=== PATIENT | female | born 1955 | race Caucasian/White ===

== ENCOUNTER 2017-10-05 07:57 | Emergency (ER) | payer OTHER ==
[2017-10-05 08:29] VITALS: BP 118/63
--- NOTE | 2017-10-05 08:35 | UC ---
Respiratory Complaint HPI - HPI Summary HPI Summary: Pt presents with c/o cough, chest congestion, wheezing with recumbent position, nasal congestion and generalized malaise X 5 days. - History of Current Complaint Stated Complaint: COUGH WHEEZING CONGESTION Time Seen by Provider: 10/05/17 08:06 Hx Obtained From: Patient ?: No Onset/Duration: Gradual Onset, Lasting Days, Still Present Timing: Constant Severity Initially: Mild Severity Currently: Mild Character: Cough: Productive Aggravating Factors: Exertion, Deep Breaths, Recumbent Position Associated Signs And Symptoms: Positive: Wheezing, URI, Nasal Congestion - Risk Factors Pulmonary Embolism Risk Factors: Negative Cardiac Risk Factors: Hypertension Pseudomonas Risk Factors: Negative Tuberculosis Risk Factors: Negative - Allergies/Home Medications Allergies/Adverse Reactions: Allergies Allergy/AdvReac Type Severity Reaction Status Date / Time Penicillins Allergy Intermediate Rash Verified 10/05/17 08:11 enviromenta;l Allergy Unknown Uncoded 10/05/17 08:11 Reaction Details percocet and related AdvReac Nausea Uncoded 10/05/17 08:11 Home Medications: Home Medications Aspirin Low Dose CHEW TAB* [Aspirin Low Dose TAB*] 81 mg PO DAILY 10/05/17 [ History Confirmed 10/05/17] PMH/Surg Hx/FS Hx/Imm Hx Previously Healthy: Yes Cardiovascular History: Hypertension - Surgical History Surgical History: None Surgery Procedure, Year, and Place: 06/2013 cardiac ablation, another ablation 2013 , right knee replaced, TEMP. REVEAL IMPLANT..LEFT CHEST WALL 04/2013 - Family History Known Family History: Positive: Cardiac Disease - Social History Occupation: Retired Lives: With Family Alcohol Use: Occasionally Substance Use Type: None Smoking Status (MU): Former Smoker Have You Smoked in the Last Year: No - Immunization History Most Recent Influenza Vaccination: AUG 2017 Review of Systems Constitutional: Fatigue Skin: Negative Eyes: Negative ENT: Sinus Congestion Respiratory: Shortness Of Breath - with exertion, Cough Cardiovascular: Negative Gastrointestinal: Negative Genitourinary: Negative Motor: Negative Neurovascular: Negative Musculoskeletal: Negative Neurological: Negative Psychological: Negative Is Patient Immunocompromised?: No All Other Systems Reviewed And Are Negative: Yes Physical Exam Triage Information Reviewed: Yes Appearance: Well-Appearing Vital Signs: Initial Vital Signs Temp 98.4 F 10/05/17 08:14 Resp 18 10/05/17 08:14 BP 118/63 10/05/17 08:14 Pulse Ox 97 10/05/17 08:14 Vital Signs Reviewed: Yes Eye Exam: Normal ENT Exam: Other ENT: Positive: Nasal congestion Dental Exam: Normal Neck exam: Normal Respiratory: Positive: No respiratory distress, Wheezing - fine with inspriration and expiration Cardiovascular Exam: Normal Musculoskeletal Exam: Normal Neurological Exam: Normal Psychological Exam: Normal Skin Exam: Normal UC Diagnostic Evaluation - Laboratory O2 Sat by Pulse Oximetry: 97 Respiratory Course/Dx - Differential Dx/Diagnosis Differential Diagnosis/HQI/PQRI: Bronchitis, Other - pneumonia Provider Diagnoses: bronchitis. pneumonia? Discharge - Discharge Plan Condition: Stable Disposition: HOME Prescriptions: Azithromycin TAB* [Zithromax TAB (Z-LEÓN) 250 mg #6 tabs] 2 tab PO .TODAY, THEN 1 DAILY #1 león Benzonatate CAP* [Tessalon 100 MG CAP*] 100 mg PO Q8H PRN #21 cap PRN Reason: Cough predniSONE TAB* [Deltasone TAB*] 30 mg PO DAILY #12 tab Patient Education Materials: Acute Bronchitis (ED), Bronchospasm (ED) Referrals: Katelyn Nye MD [Primary Care Provider] - If Needed
== END 2017-10-05 08:42 | disposition home or self-care (01) ==
LOC: UCCORT 07:57
DX: J40 Bronchitis, not specified as acute or chronic (principal); J18.9 Pneumonia, unspecified organism; I10 Essential (primary) hypertension; Z88.5 Allergy status to narcotic agent; Z88.0 Allergy status to penicillin; Z79.82 Long term (current) use of aspirin; Z96.651 Presence of right artificial knee joint; Z87.891 Personal history of nicotine dependence
CPT/HCPCS: 99212; G0463

== ENCOUNTER 2018-02-26 16:57 | Emergency (ER) | payer OTHER ==
[2018-02-26 18:08] VITALS: BP 141/74
[2018-02-26] MEDS ORDERED: Ketorolac INJ* 15 MG/ML 1 ML VIAL IM ONE (18:27)
[2018-02-26] MEDS ORDERED: Ketorolac INJ* 30 MG/ML 1 ML VIAL IM ONE (18:31)
[2018-02-26] MEDS ORDERED: Cyclobenzaprine TAB* 10 MG ONE (19:04)
[2018-02-26] MEDS ORDERED: Cyclobenzaprine TAB* 10 MG PO ONE (19:07)
--- NOTE | 2018-02-27 17:07 | UC ---
Back Pain HPI - HPI Summary HPI Summary: Patient is a 63-year-old female who presents to the for back pain 2 days. Patient states she was doing yard work yesterday and progressively developed left low back pain. Pain is worse with movement. She states she feels as though she is having intermittent spasming. She denies radicular pain and so legs. Denies numbness, tingling or weakness in legs. Denies bowel or bladder incontinence or retention. Pt. states she has had similar symptoms in the past and her symptoms improved with IM Toradol and a muscle relaxer. Symtpoms are mild in severity. - History of Current Complaint Chief Complaint: UCBackPain Stated Complaint: BACK PAIN Time Seen by Provider: 02/26/18 18:14 Hx Obtained From: Patient Pain Intensity: 5 Pain Scale Used: 0-10 Numeric - Allergies/Home Medications Allergies/Adverse Reactions: Allergies Allergy/AdvReac Type Severity Reaction Status Date / Time Penicillins Allergy Nausea Verified 02/26/18 18:10 enviromenta;l Allergy Unknown Uncoded 10/05/17 08:11 Reaction Details percocet and related AdvReac Nausea Uncoded 10/05/17 08:11 PMH/Surg Hx/FS Hx/Imm Hx Previously Healthy: Yes - Surgical History Surgical History: None Surgery Procedure, Year, and Place: 06/2013 cardiac ablation, another ablation 2013 , right knee replaced, TEMP. REVEAL IMPLANT..LEFT CHEST WALL 04/2013 - Family History Known Family History: Positive: Cardiac Disease - Social History Alcohol Use: Occasionally Substance Use Type: None Smoking Status (MU): Former Smoker Have You Smoked in the Last Year: No - Immunization History Most Recent Influenza Vaccination: AUG 2017 Review of Systems Constitutional: Negative ENT: Negative Respiratory: Negative Cardiovascular: Negative Gastrointestinal: Negative Genitourinary: Negative Motor: Negative Neurovascular: Negative Musculoskeletal: Other: - Left sided back pain Neurological: Negative Is Patient Immunocompromised?: No All Other Systems Reviewed And Are Negative: Yes Physical Exam Triage Information Reviewed: Yes Appearance: Well-Appearing - Patient sitting in chair in no acute distress. Pleasant. Vital Signs: Initial Vital Signs Temp 99.2 F 02/26/18 18:01 Pulse 57 02/26/18 18:01 Resp 16 02/26/18 18:01 BP 141/74 02/26/18 18:01 Pulse Ox 100 02/26/18 18:01 Vital Signs Reviewed: Yes Eyes: Positive: Conjunctiva Clear Neck: Positive: Supple Musculoskeletal Exam: Normal Musculoskeletal: Positive: Strength Intact, Other: - 5 out of 5 strength in bilateral lower extremities. Pin point pain on palpation to left lower paraspinal region. No CVA tenderness bilaterally. No midline tenderness. Neurological Exam: Normal Psychological Exam: Normal Back Pain Course/Dx - Course Course Of Treatment: Patient presenting for evaluation of back pain after doing yard work. She is no neurological deficits on exam or evidence of cauda equina syndrome. Pain is reproducible here patient states it feels like muscle spasms she's had before. She states she was given an injection of Toradol in the past which helped with her symptoms. 15 mg IM Toradol ordered. A few days of Flexeril prescribed. Advised patient to apply warm compresses to back. Gentle massage. Close follow-up with family doctor if symptoms persist and return to the urgent care or go to the ear symptoms change or worsen. - Differential Dx/Diagnosis Provider Diagnoses: 1. Muscle strian 2. Muscle spasm Discharge - Sign-Out/Discharge Documenting (check all that apply): Discharge/Admit/Transfer - Discharge Plan Condition: Good Disposition: HOME Prescriptions: Cyclobenzaprine TAB* [Flexeril 10 MG TAB*] 10 mg PO TID PRN #9 tab PRN Reason: Pain Patient Education Materials: Muscle Spasm (ED) Referrals: Katelyn Nye MD [Primary Care Provider] - Additional Instructions: Schedule a follow up appointment with your PCP Flexeril as directed for muscle spasm Apply warm compress Tylenol or Motrin for pain as directed Return to UC or go to ER if symptoms change or worsen - Billing Disposition and Condition Condition: GOOD Disposition: HOME
== END 2018-02-26 19:14 | disposition home or self-care (01) ==
LOC: UCCORT 16:57
DX: S39.012A Strain of muscle, fascia and tendon of lower back, initial encounter (principal); M62.830 Muscle spasm of back; X58.XXXA Exposure to other specified factors, initial encounter; Y93.9 Activity, unspecified; Y92.007 Garden or yard of unspecified non-institutional (private) residence as the place of occurrence of the external cause; Z88.5 Allergy status to narcotic agent; Z88.0 Allergy status to penicillin; Z87.891 Personal history of nicotine dependence
CPT/HCPCS: 96372; 99212; A9270-GY; G0463; J1885

== ENCOUNTER 2018-03-18 08:11 | Emergency (ER) | payer MEDICARE, OTHER ==
--- OUTSIDE RECORDS SUMMARY | 2018-03-18 08:25 | XMS REPORT ---
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 Katelyn Nye MD Primary Care Physician Unavailable Payers Type Date Identification Numbers Payment Provider Subscriber Commercial Effective: Policy Number: [id number] [employer] Maria D Jenkins 2017 PayID: [id number] [address] [place] [address] Commercial Expires: 2017 Policy Number: [facility] ABY Jenkins [id number] PayID: [id number] [address] [place] [address] Problems Date Description Provider Status Onset: 03/11/2017 Chronic allergic conjunctivitis Luisa Davis, Active RPA-C Onset: 02/04/2016 Acute atopic conjunctivitis Mani Galeano MD Active Onset: 02/04/2016 Allergic rhinitis Mani Galeano MD Active Onset: 02/04/2016 Allergic rhinitis due to pollen Mani Galeano MD Active Social History Type Date Description Comments Smoke-Free Home is smoke-free Pets 1 cat Cigarette Use Former Cigarette Smoker Smoking Patient is a former smoker Allergies, Adverse Reactions, Alerts Date Description Reaction Status Severity Comments 02/04/2016 Penicillin active Medications Medication Date Status Form Strength Qnty SIG Indications Ordering Provider Fluticasone 03/12 Active Suspension 50mcg/Act 1unit [place] 2 Christopher Propionate s puffs Enriqueta Galeano MD into each nostril once daily. Ketotifen 02/03 Active Solution 0.025% 5ml 1 drop J30.1 Christopher Fumarate apply to Enriqueta Galeano MD affected eye twice a day as needed Enalapril Active Tablets 20mg 1 tab Po Ring, Elyn Maleate / daily Pantoprazole Active Tablets DR 40mg takes Unknown Sodium twice a week KP Aspirin Active Tablets DR 81mg 1 tab PO Unknown daily Osphena Active Tablets 60mg twice a Unknown week Levocetirizine Active Tablets 5mg 90tab take one Christopher Dihydrochloride s tablet by Enriqueta Galeano MD mouth daily at bedtime. Mometasone 03/11 Hx Suspension 50mcg/Act 51gm [place] two J30.1 Christopher Furoate /2016 sprays in Enriqueta Galeano MD - each 03/11 nostril once daily. Fluticasone 02/20 Hx Suspension 50mcg/Act 1unit spray 2 Christopher Propionate s sprays in Enriqueta Galeano MD - each 09/02 nostril daily Nasacort Allergy 02/04 Hx Aerosol 55mcg/Act 1unit 2 sprays Christopher 24HR s in each Enriqueta Galeano MD - nostril 02/20 once a day Nasonex 02/03 Hx Suspension 50mcg/Act 17gm 2 J30.1 Christopher /2015 intranasa Enriqueta Galeano MD - l puffs 02/04 every /2015 Diazepam Hx Tablets 5mg Unknown - 03/10 Loratadine Hx Tablets 10mg take one Unknown tablet by - mouth 03/10 daily as needed Vital Signs Date Vital Result Comment 03/03/2018 BP Systolic 114 mmHg BP Diastolic 70 mmHg Height 65 inches 5'5" Weight 208.00 lb BMI (Body Mass Index) 34.6 kg/m2 Heart Rate 71 /min Respiratory Rate 17 /min Body Temperature 97.9 F O2 % BldC Oximetry 99 % 09/02/2017 BP Systolic 119 mmHg BP Diastolic 68 mmHg Height 65 inches 5'5" Weight 199.00 lb BMI (Body Mass Index) 33.1 kg/m2 Heart Rate 64 /min Respiratory Rate 18 /min O2 % BldC Oximetry 99 % 03/11/2017 BP Systolic 124 mmHg BP Diastolic 78 mmHg Height 65 inches 5'5" Weight 184.00 lb BMI (Body Mass Index) 30.6 kg/m2 Heart Rate 60 /min Respiratory Rate 16 /min Body Temperature 96.7 F O2 % BldC Oximetry 99 % 02/04/2016 BP Systolic 112 mmHg BP Diastolic 72 mmHg Height 65 inches 5'5" Weight 200.00 lb BMI (Body Mass Index) 33.3 kg/m2 Heart Rate 73 /min Respiratory Rate 16 /min Results Description No Information Procedures Description No Information Encounters Type Date Location Provider CPT E/M Dx Office Visit 03/03/2018 8:30a REBEKAH Horta [id number] J30.1 J30.89 H10.45 Office Visit 09/02/2017 9:00a ORALIA Collado 58833 J30.1 J30.89 H10.45 Office Visit 03/11/2017 9:00a ORALIA Collado 22083 J30.1 J30.89 H10.45 Office Visit 02/04/2016 10:30[place] [address] J30.1 J30.89 H10.13 Plan of Care Future Appointment(s):08/11/2018 9:30 am - ORALIA Hugo at [facility]/17/2018 - REBEKAH SteeleJ30.1 Allergic rhinitis due to pollenComments :Patient is doing well. Patient to continue Flonase as prescribed for prophylaxis of her nose and Xyzal for breakthrough nasal symptoms.Follow up:6 wvyzggI54.89 Other allergic gwmmxpqlT21.45 Other chronic allergic conjunctivitis
--- OUTSIDE RECORDS SUMMARY | 2018-03-18 08:25 | XMS REPORT ---
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 Katelyn Nye MD Primary Care Physician Unavailable Payers Type Date Identification Numbers Payment Provider Subscriber Commercial Effective: Policy Number: [id number] [employer] Maria D Jenkins 2017 PayID: [id number] [address] [place] [address] Commercial Expires: 2017 Policy Number: [facility] ABY Jenkins [id number] PayID: [id number] [address] [place] [address] Problems Date Description Provider Status Onset: 03/11/2017 [...] Provider Fluticasone 03/12 Active Suspension 50mcg/Act 1unit [place] 2 Christopher Propionate s puffs Enriqueta Galeano [...] a Unknown week Levocetirizine Active Tablets 5mg 30tab Take one Christopher Dihydrochloride s tablet by Enriqueta Galeano MD mouth daily at bedtime. Mometasone 03/11 Hx Suspension 50mcg/Act 51gm [place] two J30.1 Christopher Furoate /2016 sprays in [...] Location Provider CPT E/M Dx Office Visit 09/02/2017 9:00a ASHWIN ColladoC 91668 J30.1 J30.89 H10.45 Office Visit 03/11/2017 9:00a ASHWIN ColladoC 48030 J30.1 J30.89 H10.45 Office Visit 02/04/2016 10:30[place] [address] J30.1 J30.89 H10.13 Plan of Care 09/02/2017 - Luisa Davis, EUGENIE-CJ30.1 Allergic rhinitis due to pollenComments:Allergic rhinitis well controlled. Continue Fluticasone and Levocetirizine as prescribed.Follow up:6 months.J30.89 Other allergic rhinitisComments:Reviewed environmental controls for house dust and dust mite.Follow up:6 months.H10.45 Other chronic allergic conjunctivitisComments: Continue Ketotifen eye drops as needed for breakthrough eye allergy symptoms.Follow up:6 months.
[2018-03-18 08:34] VITALS: BP 116/67
[2018-03-18] MEDS ORDERED: cefTRIAXone VIAL(*) 1,000 MG VIAL IM ONE (09:09)
[2018-03-18] MEDS ORDERED: Lidocaine 1% INJ* 10 MG/ML 30 ML SDV INJ ONE (09:09)
[2018-03-18] MEDS ORDERED: Lidocaine 1%* 5 ML VIAL INJ ONE (09:11)
--- NOTE | 2018-03-18 10:07 | UC ---
Skin Complaint HPI - HPI Summary HPI Summary: 63 year old female with dog bite . Had 3 days ago No fever. redness right hand. some pain . Tdap 2010 and declined today. rabies shot 2016 per pt from family dogs. - History of Current Complaint Chief Complaint: UCBiteInjury Time Seen by Provider: 03/18/18 09:02 Stated Complaint: DOG BITE RT HAND Hx Obtained From: Patient Onset/Duration: Gradual Onset Timing: Constant Onset Severity: Moderate Current Severity: Moderate Pain Intensity: 6 Character: Swelling, Redness Aggravating Factor(s): Nothing Alleviating Factor(s): Nothing Associated Signs & Symptoms: Positive: Negative Related History: Trauma, Possible Reaction to: Animal - Allergy/Home Medications Allergies/Adverse Reactions: Allergies Allergy/AdvReac Type Severity Reaction Status Date / Time Penicillins Allergy Nausea Verified 02/26/18 18:10 enviromenta;l Allergy Unknown Uncoded 10/05/17 08:11 Reaction Details percocet and related AdvReac Nausea Uncoded 10/05/17 08:11 Review of Systems Skin: Other - redness hand from bite dog Is Patient Immunocompromised?: No All Other Systems Reviewed And Are Negative: Yes PMH/Surg Hx/FS Hx/Imm Hx Previously Healthy: Yes Cardiovascular History: Hypertension GI/ History: Gastroesophageal Reflux - Surgical History Surgical History: None Surgery Procedure, Year, and Place: 06/2013 cardiac ablation X3, right knee replaced, TEMP. REVEAL IMPLANT .LEFT CHEST WALL 04/2013 - Family History Known Family History: Positive: Cardiac Disease - Social History Lives: With Family Alcohol Use: Occasionally Substance Use Type: None Smoking Status (MU): Former Smoker Have You Smoked in the Last Year: No - Immunization History Most Recent Influenza Vaccination: AUG 2017 Physical Exam Triage Information Reviewed: Yes Appearance: Well-Appearing, No Pain Distress, Well-Nourished Vital Signs: Initial Vital Signs Temp 98.7 F 03/18/18 08:25 Pulse 69 03/18/18 08:25 Resp 17 03/18/18 08:25 BP 116/67 03/18/18 08:25 Pulse Ox 98 03/18/18 08:25 Vital Signs Reviewed: Yes Neck exam: Normal Neck: Positive: 1 Respiratory Exam: Normal Cardiovascular Exam: Normal Musculoskeletal Exam: Normal Neurological Exam: Normal Psychological Exam: Normal Skin: Positive: Other - right dorsal hand with erythema, redness, tender , warm , 2 small puncture wounds, right thumb with superficial laceration 1 cm and intact. goes to the wrist. no streaking. no discharge. does not extend beyond the wrist Course/Dx - Course Course Of Treatment: can not tolerate amox -- give doxy -- aware of SE and if Sx worsen then to go to ED - Differential Diagnoses - Skin Complaint Differential Diagnoses: Abscess, Cellulitis - Diagnoses Provider Diagnoses: dog bite right hand with secondary bacterial infection Discharge - Sign-Out/Discharge Documenting (check all that apply): Discharge/Admit/Transfer - Discharge Plan Condition: Good Disposition: HOME Prescriptions: Doxycycline Hyclate 100 mg PO BID 10 Days #20 tablet Patient Education Materials: Animal Bite (ED) Referrals: Katelyn Nye MD [Primary Care Provider] - 3 Days - Billing Disposition and Condition Condition: GOOD Disposition: HOME
== END 2018-03-18 10:08 | disposition home or self-care (01) ==
LOC: UCCORT 08:11
DX: S61.451A Open bite of right hand, initial encounter (principal); L08.9 Local infection of the skin and subcutaneous tissue, unspecified; B96.89 Other specified bacterial agents as the cause of diseases classified elsewhere; W54.0XXA Bitten by dog, initial encounter; Y93.9 Activity, unspecified; Y92.9 Unspecified place or not applicable; Z88.5 Allergy status to narcotic agent; Z88.0 Allergy status to penicillin; I10 Essential (primary) hypertension; Z87.891 Personal history of nicotine dependence
CPT/HCPCS: 99212; G0463; J0696

== ENCOUNTER 2018-11-03 09:23 | Emergency (ER) | payer MEDICARE ==
[2018-11-03 10:42] VITALS: BP 124/79
--- NOTE | 2018-11-03 10:53 | UC ---
Respiratory Complaint HPI - HPI Summary HPI Summary: 63 y/o female presents to the urgent care c/o productive cough w/ chest discomfort and producing a green phlegm for the past 2 weeks. Pt states symptoms started w/ a common cold. She has been taking Coricidin PO to alleviate symptoms. Pt hasn't been able to sleep for the past 2 days due to cough. Pt denies fever, SOB, wheezing, chest pain,abdominal pain, N/V/D. - History of Current Complaint Chief Complaint: UCRespiratory Stated Complaint: COUGH Time Seen by Provider: 11/03/18 10:48 Hx Obtained From: Patient ?: No - Menopausal Onset/Duration: Gradual Onset, Lasting Weeks - 2 weeks, Still Present, Worse Since - 2 days Timing: Intermittent Episodes Severity Initially: Mild Severity Currently: Moderate Pain Intensity: 2 Pain Scale Used: 0-10 Numeric Character: Cough: Productive, Sputum Description: - green Aggravating Factors: Recumbent Position Alleviating Factors: OTC Meds Associated Signs And Symptoms: Positive: Fever, URI, Nasal Congestion - green nasal discharge, Sinus Discomfort. Negative: Wheezing, Hemoptysis, Dizziness - Risk Factors Pulmonary Embolism Risk Factors: Negative Cardiac Risk Factors: Negative Pseudomonas Risk Factors: Negative Tuberculosis Risk Factors: Negative - Allergies/Home Medications Allergies/Adverse Reactions: Allergies Allergy/AdvReac Type Severity Reaction Status Date / Time Penicillins Allergy Nausea Verified 11/03/18 10:44 enviromenta;l Allergy Unknown Uncoded 11/03/18 10:44 Reaction Details percocet and related AdvReac Nausea Uncoded 11/03/18 10:44 Home Medications: Home Medications Chlorpheniramine/Dextromethorp [Coricidin Hbp Cough & Cold Tab] 1 tab PO TID PRN 11/03/18 [History Confirmed 11/03/18] PMH/Surg Hx/FS Hx/Imm Hx Previously Healthy: Yes Cardiovascular History: Hypertension - Surgical History Surgical History: None Surgery Procedure, Year, and Place: 06/2013 cardiac ablation X 3, right knee replaced, TEMP. REVEAL IMPLANT .LEFT CHEST WALL 04/2013 still present - Family History Known Family History: Positive: Cardiac Disease, Hypertension - Social History Occupation: Employed Full-time Lives: With Family Alcohol Use: Occasionally Substance Use Type: None Smoking Status (MU): Former Smoker Have You Smoked in the Last Year: No - Immunization History Most Recent Influenza Vaccination: AUG 2017 Review of Systems All Other Systems Reviewed And Are Negative: Yes Constitutional: Positive: Negative Skin: Positive: Negative Eyes: Positive: Negative ENT: Positive: Nasal Discharge - yellowish, Sinus Congestion, Sinus Pain/ Tenderness Respiratory: Positive: Cough - productive cough w/ yellowish phlegm Cardiovascular: Positive: Negative Gastrointestinal: Positive: Negative Genitourinary: Positive: Negative Motor: Positive: Negative Neurovascular: Positive: Negative Musculoskeletal: Positive: Negative Neurological: Positive: Negative Psychological: Positive: Negative Is Patient Immunocompromised?: No Physical Exam - Summary Physical Exam Summary: Vital Signs Reviewed: Yes General: well developed, well nourished female sitting in the examining table w/ o any apparent distress Eyes: Positive: Conjunctiva Clear - PERRLA, EOMI, fundi grossly normal ENT: Positive: Normal ENT inspection, Hearing grossly normal, Pharynx normal, Nasal congestion - edematous and erythematous nasal mucosa, Nasal drainage - yellowish drainage, TMs normal. Negative: Tonsillar swelling, Tonsillar exudate Neck: Positive: Supple, Nontender, No Lymphadenopathy Respiratory: no orthopnea or dyspnea. Able to speak in full sentences, no retractions or accessory muscle use, no tripod position, stridor, or head bobbing. Positive breath sounds bilaterally. diffuse scattered rhonchi on b/L lungs, no crackles or rales. Cardiovascular: Positive: RRR, No Murmur, Pulses Normal, Brisk Capillary Refill Abdomen Description: Positive: Nontender, No Organomegaly, Soft. Negative: CVA Tenderness (R), CVA Tenderness (L) Bowel Sounds: Positive: Present Musculoskeletal Exam: Normal Musculoskeletal: Positive: Strength Intact, ROM Intact, No Edema Neurological Exam: Normal Psychological Exam: Normal Skin Exam: Normal Triage Information Reviewed: Yes Vital Signs: Initial Vital Signs Temp 99.1 F 11/03/18 10:38 Pulse 89 11/03/18 10:38 Resp 20 11/03/18 10:38 BP 124/79 11/03/18 10:38 Pulse Ox 97 11/03/18 10:38 UC Diagnostic Evaluation - Laboratory O2 Sat by Pulse Oximetry: 97 Respiratory Course/Dx - Course Course Of Treatment: 63 y/o female presents to the urgent care c/o productive cough w/ chest discomfort and producing a green phlegm for the past 2 weeks. Pt states symptoms started w/ a common cold. She has been taking Coricidin PO to alleviate symptoms. Pt hasn't been able to sleep for the past 2 days due to cough. Pt denies fever, SOB, wheezing, chest pain,abdominal pain, N/V/D. Hx obtained. Pt w/ diffuse scattered rhonchi on b/L lungs on examination. O2Sat:97 %. Chest X-ray ordered:No acute cardiopulmonary disease observed as per radiologist. Pt with Acute bronchitis on examination. Pt Rx Doxycycline PO and Tessalon tabs PO to alleviate symptoms. Pt advised to increase fluid intake and eat well. if not improvement or worsening of symptoms to return to the urgent care or f/u with PCP for further management. pt understood and agreed with plan of care. - Differential Dx/Diagnosis Differential Diagnosis/HQI/PQRI: Bronchitis, Influenza, Lower Resp Infection, Sinusitis Provider Diagnosis: Acute bronchitis Discharge - Sign-Out/Discharge Documenting (check all that apply): Patient Departure - D/C home All imaging exams completed and their final reports reviewed: Yes - Discharge Plan Condition: Stable Disposition: HOME Prescriptions: Benzonatate CAP* [Tessalon 100 MG CAP*] 100 mg PO TID #21 cap DOXYcycline CAP(*) [DOXYcycline 100MG CAP(*)] 100 mg PO BID #14 cap Patient Education Materials: Acute Bronchitis (ED) Referrals: Katelyn Nye MD [Primary Care Provider] - 3 Days Additional Instructions: 1-Please take full course of antibiotic to avoid resistance. Please stop taking Calcium Carbonate while taking the antibiotic 2-Take Tessalon PO tabs as directed to alleviate cough. Increase fluid intake , rest and eat well. 3- If symptoms do not improve or worsen or your develop SOB with fever and severe wheezing please go immediately to the ER further evaluation and treatment. 4- F/u with your PCP in 3 days for further management if not improvement of symptoms - Billing Disposition and Condition Condition: STABLE Disposition: Home
== END 2018-11-03 11:41 | disposition home or self-care (01) ==
LOC: UCCORT 09:23
DX: J20.9 Acute bronchitis, unspecified (principal); Z88.0 Allergy status to penicillin; Z88.5 Allergy status to narcotic agent; Z96.651 Presence of right artificial knee joint; Z87.891 Personal history of nicotine dependence
CPT/HCPCS: 71046; 99212; G0463

== ENCOUNTER 2019-09-23 17:58 | Emergency (ER) | payer MEDICARE ==
--- OUTSIDE RECORDS SUMMARY | 2019-09-23 18:02 | XMS REPORT | Continuity of Care Document ---
:1955 External Reference #:[id number] Author Name ORALIA Hugo (transmitted by agent of provider Mani Galeano) Address [address] [facility] [address] [place] [phone] Care Team Providers Name Role Phone Katelyn Nye MD Care Team Information Breakfast Host [phone] Problems Active Problems Provider Date Chronic allergic conjunctivitis ORALIA Hugo Onset: 2016 Acute atopic conjunctivitis Mani Galeano MD Onset: 02/04/2016 Allergic rhinitis Mani Galeano MD Onset: 02/04/2016 Allergic rhinitis due to pollen Mani Galeano MD Onset: 02/04/2016 Social History Type Date Description Comments Sex Unknown Tobacco Use Start: Unknown End: Unknown Former Cigarette Smoker Smoking Status Reviewed: 08/10/19 Former Cigarette Smoker Tobacco Use Start: Unknown End: Unknown Patient is a former smoker Allergies, Adverse Reactions, Alerts Active Allergies Reaction Severity Comments Date Penicillin 02/04/2016 Medications Active Medications SIG Qnty Indications Ordering Provider Date Fluticasone Propionate spray 2 puffs 16gm Christopher AUsman 03/12/2017 into each MD Froylan 50mcg/Act Suspension nostril once daily. Enalapril Maleate 1 tab Po daily Katelyn Nye MD 20mg Tablets Pantoprazole Sodium takes twice a Unknown 40mg week Tablets DR KUO Aspirin 1 tab PO daily Unknown 81mg Tablets Osphentianna twice a week Unknown 60mg Tablets Levocetirizine take 1 tablet 90tabs Christopher A. Dihydrochloride by mouth daily MD Froylan 5mg Tablets at bedtime Immunizations Description No Information Available Vital Signs Date Vital Result Comment 08/10/2019 9:24am BP Systolic 148 mmHg BP Diastolic 76 mmHg Height 65 inches 5'5" Weight 198.00 lb BMI (Body Mass Index) 32.9 kg/m2 Heart Rate 74 /min O2 % BldC Oximetry 97 % 08/11/2018 8:53am BP Systolic 134 mmHg BP Diastolic 82 mmHg Height 65 inches 5'5" Weight 198.00 lb BMI (Body Mass Index) 32.9 kg/m2 Heart Rate 61 /min Respiratory Rate 18 /min Body Temperature 98.9 F O2 % BldC Oximetry 98 % Results Description No Information Available Procedures Description No Information Available Medical Devices Description No Information Available Encounters Type Date Location Provider Dx Diagnosis Office Visit 08/10/2019 [place] Luisa Delgado30.1 Allergic rhinitis due 9:30a ORALIA Davis to pollen J30.89 Other allergic rhinitis Assessments Date Code Description Provider 08/10/2019 J30.1 Allergic rhinitis due to pollen EUGENIE Hugo 08/10/2019 J30.89 Other allergic rhinitis ORALIA Hugo Plan of Treatment Future Appointment(s):08/15/2020 9:30 am - ORALIA Hugo at [facility]/24/2019 - ASHWIN HugoCJ30.1 Allergic rhinitis due to pollenComments:Allergic rhinitis well controlled. Continue current treatment plan.Follow up:1 year.J30.89 Other allergic rhinitis Functional Status Description No Information Available Mental Status Description No Information Available Referrals Description No Information Available
--- OUTSIDE RECORDS SUMMARY | 2019-09-23 18:02 | XMS REPORT | Continuity of Care Document ---
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 Katelyn Nye MD Onset: 08/2011 heart failure Osteopetrosis Katelyn Nye MD Onset: 05/28/2011 Depressive disorder Katelyn Nye MD Onset: 05/28/2011 Atrial fibrillation Katelyn Nye MD Onset: 01/18/2013 Pain in thoracic spine Katelyn Nye MD Onset: 08/16/2013 Social History Type Date Description Comments Sex Unknown Tobacco Use Start: Unknown Never Smoked Cigarettes ETOH Use Rarely consumes alcohol Recreational Drug Use Never Used Drugs Tobacco Use Start: Unknown End: Unknown Patient is a former smoker Smoking Status Reviewed: 10/28/17 Patient is a former smoker Allergies, Adverse Reactions, Alerts Active Allergies Reaction Severity Comments Date Penicillin 03/31/2006 Percocet Nausea and Vomiting, Also Similar Heavy 02/15/2014 Duty Pain Meds. Medications Active Medications SIG Qnty Indications Ordering Provider Date Metaxalone every night at 60tabs Katelyn Nye MD 08/14/2019 800mg bedtime for lower Tablets back pain B Complex-B12 1 daily by mouth 90tabs Katelyn Nye MD 12/08/2018 Tablets Aspirin 1 by mouth every Katelyn Nye MD 06/25/2016 81mg Tablets day Osphena tab 1 by mouth 90tabs Katelyn Nye MD 11/13/2015 60mg Tablets daily Multivital-M every day Katelyn Nye MD 04/04/2012 Tablets Calcium 500 + D 1 po bid Katelyn Nye MD 04/04/2012 [id number] Tablets Enalapril Maleate 1 by mouth every 90tabs Katelyn Nye MD 03/19/2011 20mg day Tablets Nasonex 1 spray every 1units Katelyn Nye MD 05/06/2009 50mcg/Act nostril daily Suspension Zyrtec Allergy tab 1 po q day 90caps Unknown 10mg Capsules Protonix 1 by mouth Q Day 90tabs Katelyn Nye MD 40mg Tablets DR Ramon Ji Extract 1 tab as directed Unknown daily 80mg Capsules Medications Administered in Office Medication SIG Qnty Indications Ordering Provider Date H1N1 Administration-Use Katelyn Nye MD 09/02/2009 Injection Immunizations CPT Code Status Date Vaccine Lot # [id number] Given 08/14/2019 Influenza Virus (Afluria) Split Virus 3 Years [id number] Of Age And Older 32671 Given 08/14/2019 Tetanus,Diphtheria,Adut/Adol Pertussis 71163 Given 08/14/2019 Influenza Virus Vaccine, Quadrivalent, Split, Preservative Free Q2035 Given 08/02/2018 Influenza Virus (Afluria) Split Virus 3 Years [id number] Of Age And Older 39214 Given 08/02/2018 Influenza Virus Vaccine, Quadrivalent, Split, Preservative Free [id number] Given 08/31/2017 Influenza Virus (Afluria) Split Virus 3 Years [id number] Of Age And Older 51668 Given 04/01/2017 Pneumococcal Conjugate Vaccine 13 Valent For [id number] Intramuscular Use Q2037 Given 06/25/2016 Influenza Vaccine (Fluvirin) 3 Years Of Age Or [id number] Older Q2037 Given 09/19/2015 Influenza Vaccine (Fluvirin) 3 Years Of Age Or [id number] Older Q2035 Given 07/23/2015 Influenza Virus (Afluria) Split Virus 3 Years [id number] Of Age And Older Q2037 Given 07/26/2014 Influenza Vaccine (Fluvirin) 3 Years Of Age Or Older Q2037 Given 07/26/2014 Influenza Vaccine (Fluvirin) 3 Years Of Age Or Older Q2038 Given 07/10/2013 Influenza Vaccine (Fluzone) Administered Age 3 [id number] And Older Q2037 Given 07/27/2012 Influenza Vaccine (Fluvirin) 3 Years Of Age Or [id number] Older 33517 Given 09/01/2010 Tetanus,Diphtheria,Adut/Adol Pertussis [id number] 48353 Given 08/20/2010 Influenza Vaccine [id number] 69301 Given 09/12/2008 Tetanus Shot [id number] Vital Signs Date Vital Result Comment 08/14/2019 8:38am BP Systolic 132 mmHg BP Diastolic 74 mmHg Heart Rate 64 /min Respiratory Rate 16 /min Weight 196.00 lb 04/10/2019 9:04am BP Systolic 140 mmHg BP Diastolic 72 mmHg Heart Rate 72 /min Height 65 inches 5'5" Weight 208.50 lb BMI (Body Mass Index) 34.7 kg/m2 O2 % BldC Oximetry 98 % Results Test Date Facility Test Result H/L Range Note CMP W/GFR 08/04/2019 [facility] Glucose 97 mg/dL Normal 65-99 1, 2 [address] [place] [address] [phone] Urea Nitrogen (BUN) 20 mg/dL Normal 7-25 Creatinine 1.01 mg/dL High 0.50-0.99 3 eGFR Non-Afr. Norwegian 58 mL/min/1.73m2 Low > Or = 60 eGFR 67 mL/min/1.73m2 Normal > Or = 60 BUN/Creatinine Ratio 20 (calc) Normal 6-22 Sodium 136 mmol/L Normal 135-146 Potassium 4.4 mmol/L Normal 3.5-5.3 Chloride 101 mmol/L Normal 98-110 Carbon Dioxide 27 mmol/L Normal 20-32 Calcium 9.9 mg/dL Normal 8.6-10.4 Protein, Total 7.6 g/dL Normal 6.1-8.1 Albumin 4.6 g/dL Normal 3.6-5.1 Globulin 3.0 g/dL(calc) Normal 1.9-3.7 Albumin/Globulin Ratio 1.5 (calc) Normal 1.0-2.5 Bilirubin, Total 0.6 mg/dL Normal 0.2-1.2 Alkaline Phosphatase 83 U/L Normal 33-130 Ast 45 U/L High 10-35 Alt 14 U/L Normal 6-29 CBC 08/04/2019 [facility] White 4.1 Normal 3.8-10.8 (H/H,RBC,Indices,WBC,PLT) [address] Blood Thousand/[facility] [facility] [place] [address] Count Red Blood Cell Count 4.17 Million/uL Normal 3.80-5.10 Hemoglobin 12.7 g/dL Normal 11.7-15.5 Hematocrit 37.1 % Normal 35.0-45.0 MCV 89.0 fL Normal 80.0-100.0 MCH 30.5 pg Normal 27.0-33.0 MCHC 34.2 g/dL Normal 32.0-36.0 RDW 13.3 % Normal 11.0-15.0 Platelet Count 223 Thousand/uL Normal 140-400 MPV 10.4 fL Normal 7.5-12.5 Laboratory test 08/04/2019 [facility] Enhanced PDF SEE IMAGE finding [address] [place] [address] [id number] [phone] Basic Metabolic 03/30/2019 Old DO Not Use [facility] Sodium 139 mmol/L 135-[address] [place] [address] [phone] Potassium 4.5 mmol/L 3.5-5.3 Chloride 105 mmol/L 98-110 Carbon Dioxide 26 mmol/L 20-32 4 Calcium 9.3 mg/dL 8.6-10.4 Glucose 108 mg/dL High 65-99 5 Urea Nitrogen (BUN) 25 mg/dL 7-25 Creatinine 1.07 mg/dL High 0.50-0.99 6 BUN/Creatinine Ratio 23.0 High 6-22 Egfr Non-Afr. Norwegian 54 ML/MIN/1.73M2 Low > Or = 60 Egfr 63 ML/MIN/1.73M2 > Or = 60 1 FASTING 2 Fasting reference interval 3 For patients >49 years of age, the reference limit for Creatinine is approximately 13% higher for people identified as -Norwegian. 4 Reference range for high altitude clients: 18-30 mmol/L 5 GLUCOSE REFERENCE RANGE BASED ON FASTING SPECIMEN. 6 The upper reference limit for Creatinine is approximately 13% higher for people identified as -Norwegian. Procedures Date Code Description Status 12/09/2016 [id number] Mammogram Completed 07/11/2015 [id number] Bone Mineral Density Test Completed 12/16/2012 [id number] Colonoscopy Completed Medical Devices Description No Information Available Encounters Type Date Location Provider Dx Diagnosis Office Visit 04/10/2019 Main Office Katelyn Nye MD I11.9 Hypertensive heart 8:45a disease without heart failure I48.0 Paroxysmal atrial fibrillation E66.9 Obesity, unspecified Assessments Date Code Description Provider 08/14/2019 I11.9 Hypertensive heart disease without heart failure Katelyn Nye MD 08/14/2019 I48.0 Paroxysmal atrial fibrillation Katelyn Nye MD 08/14/2019 M54.5 Low back pain Katelyn Nye MD 08/14/2019 K21.9 Gastro-esophageal reflux disease without esophagitis Katelyn Nye MD 04/10/2019 I11.9 Hypertensive heart disease without heart failure Katelyn Nye MD 04/10/2019 I48.0 Paroxysmal atrial fibrillation Katelyn Nye MD 04/10/2019 E66.9 Obesity, unspecified Katelyn Nye MD Plan of Treatment Future Appointment(s):12/20/2019 9:00 am - Katelyn Nye MD at Main [id number] 8:45 am - Nurse at Main Office Functional Status Description No Information Available Mental Status Description No Information Available Referrals Description No Information Available
--- OUTSIDE RECORDS SUMMARY | 2019-09-23 18:02 | XMS REPORT | Continuity of Care Document ---
:1955 External Reference #:[id number] Author Name Katelyn Nye MD (transmitted by agent of provider Jessica Keller) Address [address] [place] [address] Care Team Providers Name Role Phone Eliu De La Rosa MD - Dermatology Care Team Information Gleason Gear Generator [phone] Bob Del Valle - Cardiovascular Care Team Information Gleason Gear Generator Disease Problems Active Problems Provider Date Benign [...] Medications Active Medications SIG Qnty Indications Ordering Date Provider Cyclobenzaprine HCL take 1 tablet by 60tajoi Nye MD 12/09/2018 10mg mouth three Tablets times a day if needed B Complex-B12 1 daily by mouth 90tajoi Nye MD 12/08/2018 Tablets Aspirin 1 by mouth every Katelyn Nye MD 06/25/2016 81mg Tablets day Osphena tab 1 by mouth 90tajoi Nye MD 11/13/2015 60mg Tablets daily Multivital-M every day Katelyn Nye MD 04/04/2012 Tablets Calcium 500 + D 1 po bid Katelyn Nye MD 04/04/2012 [id number] Tablets Enalapril Maleate 1 by mouth every 90tabs Katelyn Nye MD 03/19/2011 20mg day Tablets Nasonex 1 spray every 1units Katelyn Nye MD 05/06/2009 50mcg/Act nostril daily Suspension Zyrtec Allergy tab 1 po q day 90caps Unknown 10mg Capsules Protonix 1 by mouth Q Day 90tabs Katelyn Nye MD 40mg Tablets DR Ramon Ji Extract 1 tab as Unknown 80mg directed daily Capsules Medications Administered in Office Medication SIG Qnty Indications Ordering Provider Date H1N1 Administration-Use Katelyn Nye MD 09/02/2009 Injection Immunizations CPT Code Status Date Vaccine Lot # [id number] Given 08/02/2018 Influenza Virus (Afluria) Split Virus 3 Years [id number] Of Age And Older 66145 Given 08/02/2018 Influenza Virus Vaccine, Quadrivalent, Split, Preservative Free Q2035 Given 08/31/2017 Influenza Virus (Afluria) Split Virus 3 Years [id number] Of Age And Older 95928 Given 04/01/2017 Pneumococcal Conjugate Vaccine 13 Valent For [id number] Intramuscular Use Q2037 Given 06/25/2016 Influenza Vaccine (Fluvirin) 3 Years Of Age Or [id number] Older Q2037 Given 09/19/2015 Influenza Vaccine (Fluvirin) 3 Years Of Age Or [id number] Older Q2035 Given 07/23/2015 Influenza Virus (Afluria) Split Virus 3 Years [id number] Of Age And Older Q2037 Given 07/26/2014 Influenza Vaccine (Fluvirin) 3 Years Of Age Or Older Q2037 Given 07/26/2014 Influenza Vaccine (Fluvirin) 3 Years Of Age Or Older Q2038 Given 07/10/2013 Influenza Vaccine (Fluzone) Administered Age 3 [id number] And Older Q2037 Given 07/27/2012 Influenza Vaccine (Fluvirin) 3 Years Of Age Or [id number] Older 42478 Given 09/01/2010 Tetanus,Diphtheria,Adut/Adol Pertussis [id number] 83457 Given 08/20/2010 Influenza Vaccine [id number] 75250 Given 09/12/2008 Tetanus Shot [id number] Vital Signs Date Vital Result Comment 08/14/2019 [...] H/L Range Note CMP W/GFR 08/04/2019 [facility] Glucose 97 mg/dL Normal 65-99 1, [address] [place] [address] [phone] Urea Nitrogen (BUN) 20 mg/dL Normal 7-25 Creatinine 1.01 mg/dL High 0.50-0.99 3 eGFR Non-Afr. Cypriot 58 mL/min/1.73m2 Low > Or = 60 [...] 14 U/L Normal 6-29 CBC 08/04/2019 [facility] White 4.1 Normal 3.8-10.8 (H/H,RBC,Indices,WBC,PLT) [address] Blood Thousand/[place] [address] Count Red Blood Cell Count 4.17 Million/uL Normal 3.80-5.10 Hemoglobin 12.7 g/dL Normal 11.7-15.5 Hematocrit 37.1 % Normal 35.0-45.0 MCV 89.0 fL Normal 80.0-100.0 MCH 30.5 pg Normal 27.0-33.0 MCHC 34.2 g/dL Normal 32.0-36.0 RDW 13.3 % Normal 11.0-15.0 Platelet Count 223 Thousand/uL Normal 140-400 MPV 10.4 fL Normal 7.5-12.5 Laboratory test 08/04/2019 [facility] Enhanced PDF SEE IMAGE finding [address] [place] [address] [id number] [phone] Basic Metabolic 03/30/2019 Old DO Not Use [facility] Sodium 139 mmol/L 135-[address] [place] [address] [phone] Potassium 4.5 mmol/L 3.5-5.3 Chloride 105 mmol/L 98-110 Carbon Dioxide 26 mmol/L 20-32 4 Calcium 9.3 mg/dL 8.6-10.4 Glucose 108 mg/dL High 65-99 5 Urea Nitrogen (BUN) 25 mg/dL 7-25 Creatinine 1.07 mg/dL High 0.50-0.99 6 BUN/Creatinine Ratio 23.0 High 6-22 Egfr Non-Afr. Cypriot 54 ML/MIN/1.73M2 Low > Or = 60 Egfr 63 ML/MIN/1.73M2 > Or = 60 1 FASTING 2 Fasting reference interval 3 For patients >49 years of age, the reference limit for Creatinine is approximately 13% higher for people identified as -Cypriot. 4 Reference range for high altitude clients: 18-30 mmol/L 5 GLUCOSE REFERENCE RANGE BASED ON FASTING SPECIMEN. 6 The upper reference limit for Creatinine is approximately 13% higher for people identified as -Cypriot. Procedures Date Code Description Status 12/09/2016 [id number] Mammogram Completed 07/11/2015 [id number] Bone Mineral Density Test Completed 12/16/2012 [id number] Colonoscopy Completed Medical Devices Description No Information Available Encounters Type Date Location Provider Dx Diagnosis Office Visit 04/10/2019 Main Office Katelyn Nye MD I11.9 Hypertensive heart 8:45a disease without heart failure I48.0 Paroxysmal atrial fibrillation E66.9 Obesity, unspecified Assessments Date Code Description Provider 04/10/2019 I11.9 Hypertensive heart disease without heart failure Katelyn Nye MD 04/10/2019 I48.0 Paroxysmal atrial fibrillation Katelyn Nye MD 04/10/2019 E66.9 Obesity, unspecified Katelyn Nye MD Plan of Treatment No Information Available Functional Status Description No Information Available Mental Status Description No Information Available Referrals Description No Information Available
--- OUTSIDE RECORDS SUMMARY | 2019-09-23 18:02 | XMS REPORT | Continuity of Care Document ---
:1955 External Reference #:[id number] Author Name Bbo Del Valle MD (transmitted by agent of provider Doris Vaughn) Address [address] [place] [phone] Problems Active Problems Provider Date Atrial fibrillation Bob Del Valle MD Onset: 05/11/2013 Palpitations Bob Del Valle MD Onset: 05/11/2013 Social History Type Date Description Comments Sex Unknown Tobacco Use Start: Unknown End: Unknown Patient is a former smoker Allergies, Adverse Reactions, Alerts Active Allergies Reaction Severity Comments Date Narcotics G.I Upset 11/06/2013 Penicillin 04/27/2013 Medications Active Medications SIG Qnty Indications Ordering Provider Date Protonix 1 by mouth 90tabs Bob Del Valle, 05/11/[address] twice a week Claritin 1 PO qd / prn Unknown 11/23/2013 10mg Capsules Enalapril Maleate 1 PO qd 90tabs Unknown 04/27/2013 20mg Tablets Aspirin 1 by mouth Unknown 81mg Tablets DR every day Immunizations Description No Information Available Vital Signs Date Vital Result Comment 07/21/2019 12:56pm Height 65 inches 5'5" Weight 202.00 lb BMI (Body Mass Index) 33.6 kg/m2 BP Systolic Left Arm 130 mmHg BP Diastolic Left Arm 70 mmHg Heart Rate 63 /min 07/09/2017 10:22am Height 65 inches Weight 190.00 lb BMI (Body Mass Index) 31.6 kg/m2 BP Systolic 120 mmHg BP Diastolic 80 mmHg Results Test Date Facility Test Result H/L Range Note Order 07/21/2019 [facility] EKG <pending> Procedures Date Code Description Status 07/21/2019 56565 Electrocardiogram Complete Completed Medical Devices Description No Information Available Encounters Type Date Location Provider Dx Diagnosis Office Visit 07/21/2019 [facility] Cardiology AT [facility] I48.0 Paroxysmal atrial 1:15p Charissa Del Valle MD fibrillation Assessments Date Code Description Provider 07/21/2019 I48.0 Paroxysmal atrial fibrillation Bob Del Valle MD Plan of Treatment Future Appointment(s):07/10/2020 10:00 am - Ariel Pardo MD at [facility] Cardiology AT Ifpzynlnwjhl54/04/2019 - Bob Del Valle MDI48.0 Paroxysmal atrial fibrillationFollow up:[address] Ariel Pardo Functional Status Description No Information Available Mental Status Description No Information Available Referrals Description No Information Available
--- OUTSIDE RECORDS SUMMARY | 2019-09-23 18:02 | XMS REPORT | Continuity of Care Document ---
:1955 External Reference #:[id number] Author Name Vargas Gonsales MD Address [address] [place] [phone] Care Team Providers Name Role Phone Katelyn Nye MD - Internal Medicine Care Team Information Head Of Marketing [employer] [phone] Problems Active Problems Provider Date Osteopetrosis Vargas Gonsales MD Onset: 06/21/2014 Arthroplasty of knee Vargas Gonsales MD Onset: 06/21/2014 Aftercare Following Joint Replacement Vargas Gonsales MD Onset: 06/21/2014 Social History Type Date Description Comments Sex Unknown ETOH Use Rarely consumes alcohol Tobacco Use Start: Unknown End: Patient is a former smoker quit over 10 years ago Unknown Smoking Status Reviewed: 08/02/19 Patient is a former smoker quit over 10 years ago Allergies, Adverse Reactions, Alerts Active Allergies Reaction Severity Comments Date Penicillins 05/31/2014 Medications Active Medications SIG Qnty Indications Ordering Provider Date Keflex 4 tabs by mouth 1 12caps Vargas Beckman 11/26/2011 500mg Capsules hour prior to MD Kallie procedure Ambien 1 po q hs prn 25tabs Vargas Beckman 09/24/2009 10mg Tablets MD Kallie Eliquis Unknown Immunizations Description No Information Available Vital Signs Date Vital Result Comment 08/02/2019 8:56am Pain Level 0 06/01/2016 3:59pm Height 65 inches 5'5" Weight 200.00 lb BMI (Body Mass Index) 33.3 kg/m2 Results Description No Information Available Procedures Description No Information Available Medical Devices Description No Information Available Encounters Description No Information Available Assessments Description No Information Available Plan of Treatment Future Appointment(s):02/01/2020 8:50 am - Vargas Gonsales MD at [facility] Main Xjfmdx1108/02/2019 - Vargas Gonsales MDNew Xrays:Knee, 1 0R 2 Views , LT, Ordered: 08/02/19Comments:Treatment options discussed. She will continue with over the counter anti-inflammatories. She does belong to a gym in [place] and exercise program explained to her. She did not want an injection at this time, but this is a consideration if she has increased difficulties. She does not have enough degenerative changes to warrant total knee arthroplasty, so continue with conservative care. I will recheck her clinically in several months , sooner if there is any difficulties. If she is having increased difficulties, will repeat her X-rays when she comes back in the springtime. Vargas Gonsales MD/cc Dr. Katelyn Nye Functional Status Description No Information Available Mental Status Description No Information Available Referrals Description No Information Available
[2019-09-23 18:27] VITALS: BP 145/61
[2019-09-23] MEDS ORDERED: Ketorolac INJ* 30 MG/ML 1 ML VIAL IM ONE (19:54)
[2019-09-23] MEDS ORDERED: Cyclobenzaprine TAB* 10 MG PO ONE (19:54)
--- NOTE | 2019-09-23 19:55 | UC ---
Back Pain HPI - HPI Summary HPI Summary: 64-year-old woman comes in with a chief complaint of back pain. Started when she was lifting more than a week ago. Pain in his lower thoracic upper lumbar and the left side. She had a massage which helped greatly with the pain. Last several days she's been more active and the pain returned. No radiation of the pain.. No urinary symptoms of fevers or chills. No anterior abdominal pain. Patient reports she's had this back pain multiple times in the past same area. Pain is worse with resting turning bending she feels spasms. She's taken ibuprofen with minimal relief. No weakness or numbness or difficulty controlling urine or bowel. - History of Current Complaint Chief Complaint: UCBackPain Stated Complaint: BACK SPASMS Time Seen by Provider: 09/23/19 19:21 Pain Intensity: 6 - Allergies/Home Medications Allergies/Adverse Reactions: Allergies Allergy/AdvReac Type Severity Reaction Status Date / Time Penicillins Allergy Nausea Verified 09/23/19 18:18 enviromenta;l Allergy Unknown Uncoded 09/23/19 18:18 Reaction Details percocet and related AdvReac Nausea Uncoded 09/23/19 18:18 Home Medications: Home Medications Fluticasone NASAL SPRAY 50MCG* [Flonase NASAL SPRAY 50MCG*] 1 spray INH ONCE 05/05 [History Confirmed 09/23/19] Ibuprofen TAB* [Advil TAB*] 600 mg PO ONCE 09/23/19 [History Confirmed 09/23/19] PMH/Surg Hx/FS Hx/Imm Hx Previously Healthy: Yes Cardiovascular History: Hypertension GI/ History: Gastroesophageal Reflux - Surgical History Surgical History: None Surgery Procedure, Year, and Place: 06/2013 cardiac ablation X 3, right knee replaced, TEMP. REVEAL IMPLANT .LEFT CHEST WALL 04/2013 still present - Family History Known Family History: Positive: Cardiac Disease, Hypertension - Social History Alcohol Use: Occasionally Substance Use Type: None Smoking Status (MU): Former Smoker Have You Smoked in the Last Year: No When Did the Patient Quit Smoking/Using Tobacco: 2007 - Immunization History Most Recent Influenza Vaccination: AUG 2017 Review of Systems All Other Systems Reviewed And Are Negative: Yes Constitutional: Positive: Negative Skin: Positive: Negative Eyes: Positive: Negative ENT: Positive: Negative Respiratory: Positive: Negative Cardiovascular: Positive: Negative Gastrointestinal: Positive: Negative Genitourinary: Positive: Negative Motor: Positive: Negative Neurovascular: Positive: Negative Musculoskeletal: Positive: Other: - SEE HPI Neurological: Positive: Negative Psychological: Positive: Negative Is Patient Immunocompromised?: No Physical Exam Triage Information Reviewed: Yes Appearance: Well-Appearing, Well-Nourished, Pain Distress - MILD WITH ROM OF BACK Vital Signs: Initial Vital Signs Temp 98 F 09/23/19 18:20 Pulse 68 09/23/19 18:20 Resp 15 09/23/19 18:20 BP 145/61 09/23/19 18:20 Pulse Ox 100 09/23/19 18:20 Vital Signs Reviewed: Yes Eye Exam: Normal Eyes: Positive: Conjunctiva Clear Neck: Positive: Supple Respiratory: Positive: No respiratory distress Musculoskeletal: Positive: Other: - Tender to palpation lower thoracic and upper lumbar on the left side in the paraspinous muscles. No weakness or numbness in the legs. Neurological: Positive: Alert Psychological: Positive: Age Appropriate Behavior Skin Exam: Normal Back Pain Course/Dx - Course Course Of Treatment: No signs of neurologic deficits or infection by history or exam here tonight. Will continue treatment with anti-inflammatories and also use muscle relaxers. Recommended using a lidocaine patch. Follow-up with primary care doctor or sports medicine. Reevaluate sooner if worse or any questions or concerns. - Differential Dx/Diagnosis Provider Diagnosis: Back pain Discharge ED - Sign-Out/Discharge Documenting (check all that apply): Patient Departure All imaging exams completed and their final reports reviewed: No Studies - Discharge Plan Condition: Stable Disposition: HOME Prescriptions: Cyclobenzaprine TAB* [Flexeril 10 MG TAB*] 10 mg PO TID PRN #15 tab MDD 3 PRN Reason: Pain - Moderate Patient Education Materials: Back Pain (ED), Lower Back Exercises (ED) Referrals: Katelyn Nye MD [Primary Care Provider] - [facility] [Provider Group] Additional Instructions: FOLLOW UP WITH YOUR DOCTOR IF NOT COMPLETELY IMPROVED. GET REEVALUATED SOONER IF NOT IMPROVING OR WORSE; PAIN, WEAKNESS, NUMBNESS, DIFFICULTY CONTROLLING BOWEL OR BLADDER, YOU FEEL ILL OR ANY QUESTIONS OR CONCERNS. - Billing Disposition and Condition Condition: STABLE Disposition: Home
== END 2019-09-23 20:13 | disposition home or self-care (01) ==
LOC: UCCORT 17:58
DX: M54.9 Dorsalgia, unspecified (principal); I10 Essential (primary) hypertension; Z87.891 Personal history of nicotine dependence; Z88.0 Allergy status to penicillin; Z91.09 Other allergy status, other than to drugs and biological substances; Z88.5 Allergy status to narcotic agent
CPT/HCPCS: 96372; 99212; A9270-GY; G0463; J1885